=== PATIENT | male | born 1940 | race Caucasian/White ===

== ENCOUNTER 2023-06-16 08:16 | Outpatient (CLI) | payer MEDICARE, SELFPAY | END 2023-06-16 08:17 | disposition home or self-care (01) | LOC: NFLDREF 06-17 11:40 | PROVIDERS: PCP Family Medicine; Referring Provider Family Medicine; Visit Provider Family Medicine | DX: Z00.00 Encounter for general adult medical examination without abnormal findings (principal); N40.0 Benign prostatic hyperplasia without lower urinary tract symptoms; Z13.6 Encounter for screening for cardiovascular disorders; Z12.5 Encounter for screening for malignant neoplasm of prostate | CPT/HCPCS: 80053; 80061; G0103 ==

== ENCOUNTER 2024-06-28 09:40 | Outpatient (CLI) | payer MEDICARE, SELFPAY | END 2024-06-28 09:41 | disposition home or self-care (01) | LOC: NFLDREF 09:41 | PROVIDERS: PCP Family Medicine; Visit Provider Family Medicine | DX: Z12.5 Encounter for screening for malignant neoplasm of prostate (principal); N40.0 Benign prostatic hyperplasia without lower urinary tract symptoms | CPT/HCPCS: G0103 ==